=== PATIENT | male | born 1955 | race Caucasian/White ===

== ENCOUNTER 2016-08-24 09:00 | Day surgery (SDC) | payer OTHER ==
--- NOTE | 2016-08-25 13:28 | Operative Note ---
SURGEON: Chong Jeffrey MD ANESTHESIA: MAC anesthesia. ESTIMATED BLOOD LOSS: Minimal. COMPLICATIONS: None. APPARENT FINDINGS: Several polyps in the rectum, most small, 1 large pedunculated polyp 2 to 3 cm from the dentate line in the posterior rectum, all completely removed. There was some abnormal mucosa surrounding the larger polyp, which was biopsied. PREOPERATIVE DIAGNOSIS: Screening colonoscopy. POSTOPERATIVE DIAGNOSIS: Screening colonoscopy. PROCEDURE PERFORMED: Colonoscopy with polypectomy and biopsy. INDICATIONS FOR PROCEDURE: This is a 61-year-old man who presents for a screening colonoscopy. DESCRIPTION OF PROCEDURE: The patient was brought to the endoscopy suite and placed in the left lateral decubitus position. A rectal exam was performed which was normal. The colonoscope was inserted and passed to the cecum. The prep was good. The appendiceal orifice and ileocecal valve were identified. The colonoscope was slowly retracted being careful to inspect all escobedo. In the rectum, there were several polyps. There was one approximately 1 cm sessile polyp which was completely removed with a cold biopsy. There was some hyperplastic-appearing polyps which were biopsied with a cold biopsy forceps. There was another approximately 8 mm sessile polyp in the distal rectum which was removed with a cold biopsy forceps. In the very distal rectum posteriorly 3 to 4 cm above the dentate line, there was a 2 cm pedunculated polyp. It was completely removed with a snare. The site was hemostatic. Surrounding this, there was some abnormal-appearing mucosa. Several biopsies were taken of this. There was no bleeding following the procedure. The patient tolerated the procedure well. DISPOSITION: We will await his pathology to determine his need for follow up. cc: Dr. Debbie MENDEZ
== END 2016-08-24 09:02 ==
LOC: OPSURG 09:00
PROVIDERS: ATTEND Colon & Rectal Surgery
DX: Z12.11 Encounter for screening for malignant neoplasm of colon (principal); D12.5 Benign neoplasm of sigmoid colon; K63.5 Polyp of colon; K62.1 Rectal polyp
CPT/HCPCS: 45385; 88305; J2001; J2704; J7120; S1016

== ENCOUNTER 2017-02-05 14:53 | Outpatient (CLI) | payer OTHER ==
--- NOTE | 2017-02-05 16:15 | Diagnostic Imaging Report ---
[facility] [address] [facility].[address] [id number] Report Submission Date: Feb 05, 2017 4:04:42 PM DREDGE [facility] [employer] Patient Study Name: REESE SKAGGS Date: Feb 05, 2017 3:02:29 PM DREDGE OR BARGE [employer] HAND Modality Type: CR Gender: M Description: PELVIS : 59 Institution: [facility] Physician: LOU CLEMENTS Examination: Plain film hip History: Hip discomfort Comparison exams: None provided Findings: 2 views of the hip demonstrates articular degenerative changes. Joint space narrowing. Superior acetabular spurring. No fracture no dislocation. No soft tissue abnormality. Impression: Articular degenerative changes without fracture. Electronically signed on Feb 05, 2017 4:04:42 PM DREDGE [employer] by: Isidro MENDEZ
== END 2017-02-05 14:54 ==
LOC: RAD 14:53
PROVIDERS: ATTEND Family Medicine
DX: M25.552 Pain in left hip (principal)

== ENCOUNTER 2017-11-13 08:57 | Outpatient (CLI) | payer OTHER ==
[2017-11-13 09:34] LABS: BASOPHILS % 0.5 (0.0-1.5); EOSINOPHILS % 2.9 % (0.0-6.8); MEAN CORPUSCULAR HEMOGLOBIN 30.4 pg (28.0-34.0); MEAN CORPUSCULAR VOLUME 92.2 fl (80.0-100.0); NEUTROPHILS # 2.3 # k/uL (1.4-7.7)
[2017-11-13 19:31] LABS: ADENOVIRUS F 40/41 Not Detected (Not Detected); ASTROVIRUS Not Detected (Not Detected); C. DIFFICILE (TOXIN A/B) Not Detected (Not Detected); CRYPTOSPORIDIUM Not Detected (Not Detected); CYCLOSPORA CAYETANENSIS Not Detected (Not Detected); ENTAMOEBA HISTOLYTICA Not Detected (Not Detected); GIARDIA LAMBLIA Not Detected (Not Detected); ROTAVIRUS A Not Detected (Not Detected); SAPOVIRUS Not Detected (Not Detected); VIBRIO CHOLERAE Not Detected (Not Detected)
== END 2017-11-13 09:00 ==
LOC: LAB 08:57
PROVIDERS: ATTEND Family Medicine
DX: D70.8 Other neutropenia (principal); R19.7 Diarrhea, unspecified
CPT/HCPCS: 36415; 85025; 87507

== ENCOUNTER 2018-02-18 08:54 | Outpatient (CLI) | payer OTHER ==
[2018-02-18 09:26] LABS: BASOPHILS % 0.3 (0.0-1.5); EOSINOPHILS % 4.5 % (0.0-6.8); MEAN CORPUSCULAR HEMOGLOBIN 32.2 pg (28.0-34.0); MONOCYTES % 9.7 % (0.0-11.0)
[2018-02-18 09:27] LABS: NEUTROPHILS # 2.9 # k/uL (1.4-7.7)
[2018-02-18 09:51] LABS: eGFR (Non-African) > 60
== END 2018-02-18 08:55 ==
LOC: LAB 08:54
PROVIDERS: ATTEND Family Medicine
DX: Z00.00 Encounter for general adult medical examination without abnormal findings (principal)
CPT/HCPCS: 36415; 80053; 80061; 85025

== ENCOUNTER 2018-06-24 10:44 | Outpatient (CLI) | payer OTHER ==
--- NOTE | 2018-06-24 11:25 | Diagnostic Imaging Report ---
LOU CLEMENTS [facility] [address] [facility].[address] [id number] Report Submission Date: Jun 24, 2018 11:21:30 AM CDT Patient Study Name: REESE SKAGGS Date: Jun 24, 2018 11:01:50 AM CDT Modality Type: DX Gender: M Description: SHOULDER 2 VIEWS OR MORE : 59 Institution: [facility] Physician: LOU CLEMENTS EXAMINATION: SHOULDER 2 VIEWS OR MORE HISTORY: LEFT AXIALLRY PAIN RADIATING DOWN FRONT OF ARM WITH LIMITED RANGE OF MOTION X 5 WEEKS. NKI. (Hx) COMPARISON: None FINDINGS: The osseous structures are intact without acute fracture. The glenohumeral and acromioclavicular joints are in anatomic alignment. There is minimal glenohumeral and acromioclavicular joint arthritis. IMPRESSION: Minimal shoulder arthritis without acute fracture or dislocation identified. Electronically signed on Jun 24, 2018 11:21:30 AM CDT by: Nikolay MENDEZ
== END 2018-06-24 10:55 ==
LOC: RAD 10:44
PROVIDERS: ATTEND Family Medicine
DX: M19.012 Primary osteoarthritis, left shoulder (principal); M25.512 Pain in left shoulder
CPT/HCPCS: 73030